=== PATIENT | male | born 1995 | race African-American/Black ===

== ENCOUNTER 2020-03-30 09:29 | Emergency (ER) | payer OTHER ==
[~2020-03-30] VITALS: Ht 182.9 cm; Wt 102.1 kg
[~2020-03-30 09:29] MED LIST: FLEXERIL; IBUPROFEN 800800 M1 PO; INDOMETHACIN 2525 MG; NORCO 5-325 TA1 EACH PO; ZOFRAN ODT4 M1 PO
[2020-03-30] MEDS ORDERED: HYDROCODON-ACE1 EAC7 PO (10:32)
[2020-03-30] MEDS ORDERED: FLEXERIL PO (10:32)
[2020-03-30 10:40] VITALS: BP 130/75
== END 2020-03-30 10:46 | disposition home or self-care (01) ==
LOC: ER 09:29
DX: S29.011A Strain of muscle and tendon of front wall of thorax, initial encounter (principal); X50.0XXA Overexertion from strenuous movement or load, initial encounter; Y93.89 Activity, other specified; Y92.89 Other specified places as the place of occurrence of the external cause; Y99.8 Other external cause status